=== PATIENT | male | born 1960 | race Hispanic/Latino ===

== ENCOUNTER → 2018-06-20 | Outpatient (CLI) | payer OTHER ==
[~2018-06-20] MED LIST: ALPR-410 PO; CLOP75TA14 PO; CYCL10 PO; HYDR-4068 PO; LOSA25TA41 PO; METO-408 PO; NITR0.4T SL; POLY17PO4 PO; SIMV10TA6 PO; TRAM50TA4 PO; mylanta PO
== END | disposition home or self-care (01) ==
LOC: RAH 13:39
PROVIDERS: ATTEND Family Medicine
DX: H53.9 Unspecified visual disturbance (principal); R51 Headache; Z86.73 Personal history of transient ischemic attack (TIA), and cerebral infarction without residual deficits
CPT/HCPCS: 70551

== ENCOUNTER → 2019-10-14 | Outpatient (CLI) | payer OTHER ==
[~2019-10-14] MED LIST changes: -SIMV10TA6 PO; +SIMV10TA97 PO
== END | disposition home or self-care (01) ==
LOC: RAH 14:00
PROVIDERS: ATTEND Family Medicine
DX: R91.1 Solitary pulmonary nodule (principal); R06.02 Shortness of breath
CPT/HCPCS: 71250

== ENCOUNTER → 2020-04-12 | Outpatient (CLI) | payer OTHER | END | disposition home or self-care (01) | LOC: RAH 13:59 | PROVIDERS: ATTEND Family Medicine | DX: R91.1 Solitary pulmonary nodule (principal) | CPT/HCPCS: 71250 ==

== ENCOUNTER → 2024-02-26 | Outpatient (CLI) | payer OTHER ==
[~2024-02-26] MED LIST changes: +CLOP-31 PO; -CLOP75TA14 PO; -CYCL10 PO; +CYCL10TA16 PO
--- NOTE | 2024-03-01 17:30 | HMCSR ---
APPROVED REPORT Laterality: Bilateral Indications Claudication: , PAD VELOCITY AND DOPPLER WAVEFORM ANALYSIS AIR BRAKE MAN (R) 139.4cm/sec, Biphasic, AIR BRAKE MAN (L) 115.8cm/sec, Biphasic, Prof Fem Art. (R) 92.5cm/sec, Biphasic, Prof Fem Art. (L) 66.0cm/sec, Biphasic, Fem Art Prox. (R) 93.9cm/sec, Biphasic, Fem Art Prox. (L) 96.1cm/sec, Biphasic, Fem Art Mid. (R) 79.0cm/sec, Biphasic, Fem Art Mid. (L) 60.7cm/sec, Biphasic, Fem Art Dist (R) 107.7cm/sec, Biphasic, Fem Art Dist. (L) 57.3cm/sec, Biphasic, Pop Art(AK) (R) 63.6cm/sec, Biphasic, Pop Art (AK) (L) 50.4cm/sec, Biphasic, Pop Art (Fossa)(R) 73.4cm/sec, Biphasic, Pop Art (Fossa) (L) 53.1cm/sec, Biphasic, Pop Art(BK) (R) 83.2cm/sec, Biphasic, Pop Art (BK) (L) 65.6cm/sec, Biphasic, HOSPICE VOLUNTEER Prox. (R) 78.7cm/sec, Biphasic, HOSPICE VOLUNTEER Prox. (L) 87.9cm/sec, Biphasic, HOSPICE VOLUNTEER Mid. (R) 94.9cm/sec, Biphasic, HOSPICE VOLUNTEER Mid. (L) 86.1cm/sec, Biphasic, HOSPICE VOLUNTEER Dist. (R) 76.4cm/sec, Biphasic, HOSPICE VOLUNTEER Dist. (L) 78.1cm/sec, Biphasic, Per Art Prox. (R) 52.2cm/sec, Biphasic, Per Art Prox. (L) 37.7cm/sec, Biphasic, Per Art Mid. (R) 64.4cm/sec, Biphasic, Per Art Mid. (L) 58.3cm/sec, Biphasic, Per Art Dist. (R) 44.9cm/sec, Biphasic, Per Art Dist. (L) 40.4cm/sec, Biphasic, ANAHI Prox. (R) 48.8cm/sec, Biphasic, ANAHI Prox. (L) 38.6cm/sec, Biphasic, ANAHI Mid. (R) 24.1cm/sec, Monophasic ANAHI Mid. (L) 26.0cm/sec, Monophasic, ANAHI Dist. (R) 17.9cm/sec, Monophasic, ANAHI Dist. (L) cm/sec, Occluded, Occluded Technologist Impression Monophsaic waveforms in the Right mid to distal ANAHI. Monophasic waveforms in the Left mid ANAHI with a distal occlusion. Conclusion Bilateral ANAHI PAD Otherwise no other findings Conclusion Bilateral ANAIH PAD Otherwise no other findings
--- NOTE | 2024-03-01 17:31 | HMCSR ---
APPROVED REPORT Bilateral Lower Extremity Venous Study for DVT., Venous Competence. Indications i87.1, i87.2 Vein Imaging CFV (R): Normal flow, augmentation and compression. No evidence of DVT. 10.3mm 467ms of reflux. SFJ (R): Normal flow, augmentation and compression. No evidence of DVT. FEM (R): Normal flow, augmentation and compression. No evidence of DVT. POP (R): Normal flow, augmentation and compression. No evidence of DVT. DFV (R): Normal flow, augmentation and compression. No evidence of DVT. PTV (R): Normal flow, augmentation and compression. No evidence of DVT. Peroneals (R): Normal flow, augmentation and compression. No evidence of DVT. CFV (L): Normal flow, augmentation and compression. No evidence of DVT. 12.1mm 1206ms of reflux. SFJ (L): Normal flow, augmentation and compression. No evidence of DVT. FEM (L): Normal flow, augmentation and compression. No evidence of DVT. POP (L): Normal flow, augmentation and compression. No evidence of DVT. DFV (L): Normal flow, augmentation and compression. No evidence of DVT. PTV (L): Normal flow, augmentation and compression. No evidence of DVT. Peroneals (L): Normal flow, augmentation and compression. No evidence of DVT. Technologist Impression Deep veins of the bilateral lower extremities appear paten and compressible without thrombus. Deep venous reflux noted in the LCFV. No superficial venous insufficiency. RGSV junction 5.5mm 0.0ms thigh 3.0mm 0.0ms knee 2.8mm 0.0ms calf 2.2mm 0.0ms RSSV prox 2.5mm 0.0ms mid 2.6mm 0.0ms LGSV junction 5.7mm 0.0ms thigh 3.1mm 0.0ms knee 1.7mm0.0ms calf 2.1mm0 .0ms LSSV prox 2.7mm 0.0ms mid 2.8mm 0.0ms Conclusion Deep venous reflux noted in the LCFV. No superficial venous insufficiency. Conclusion Deep venous reflux noted in the LCFV. No superficial venous insufficiency.
--- NOTE | 2024-03-04 17:04 | HMCSR ---
APPROVED REPORT EXAM: Two-dimensional and M-mode echocardiogram with Doppler and color Doppler. INDICATION ICD: R06.09 Other forms of dyspnea Chest Pain 2D Dimensions RVDd3.8 cmLVEF(%)51.2 (>50%)LVED Vol(simp.)104.0 mL IVSd0.9 (0.7-1.1cm)FS(%)26 %LVES Vol(simp.)52.0 mL LVDd5.1 (3.8-5.6cm)Ao Root(2D)3.2 (2.0-3.7cm)LVEF(%, simp.)50 % PWd0.9 (0.7-1.1cm)LVOT diam2.1 (1.8-2.4cm)LA ESV INDEX (BP)25.64 mL/m2 LVDs3.7 (2.5-4.0cm)IVC diam1.7 cm Aortic Valve AoV Vmax1.0 m/Jazzmine Peak GR3.7 mmHgLVOT Vmax0.8 m/s AoV VTI0.3 mAo Mean GR2.5 mmHgLVOT VTI0.21 m ZAEB (VMAX)2.9 cm2AVA (VTI) 2.9 cm2 Mitral Valve MV E Vmax88.1 cm/sDECEL Drev187 ms MV A Vmax74.6 cm/sP 1/2 T38 ms E/A ratio1.2MVA (PHT)5.8 cm2 TDI E/E' Hqoyqy96.5E/E' Nztgnnq62.8 Pulmonary Valve PV Vmax1.3 m/sPV VTI0.33 mPV Mean GR4 mmHg PV Peak GR6.6 mmHgPI End Jennifer. Mayur 0.8 cm/s Tricuspid Valve TR Vmax2.4 m/sRAP (EST) 3 fiApIKPC08.2 mmHg TR Peak GR23.2 mmHg Left Ventricle The left ventricle structure and function is normal. There is normal LV segmental wall motion. There is normal left ventricular wall thickness. LVEF is 50-55%. Left ventricular filling pattern is normal for age. Right Ventricle The right ventricle is normal size. The right ventricular systolic function is normal. Atria The left atrium size is normal. The right atrium size is normal. Aortic Valve Aortic valve is trileaflet. Aortic valve leaflets are sclerotic but open well. Trace aortic regurgita tion. There is no aortic valvular stenosis. Mitral Valve Mitral valve leaflets are mildly sclerotic but open well. Mitral regurgitation is trace. There is no mitral valve stenosis. Tricuspid Valve The tricuspid valve leaflets appear normal. There is trace tricuspid regurgitation. Pulmonic Valve The pulmonic valve leaflets are thin and pliable; valve motion is normal. There is trace pulmonic yuki vular regurgitation. Great Vessels The aortic root is normal in size. The IVC is normal in size and collapses >50% with inspiration. Pericardium No pericardial effusion. Conclusion LVEF is 50-55%. There is normal LV segmental wall motion. No pericardial effusion.
== END | disposition home or self-care (01) ==
LOC: SHCH 10:41
PROVIDERS: ATTEND Internal Medicine Cardiovascular Disease
DX: I70.202 Unspecified atherosclerosis of native arteries of extremities, left leg (principal); I87.2 Venous insufficiency (chronic) (peripheral); I87.1 Compression of vein; R07.9 Chest pain, unspecified; R06.09 Other forms of dyspnea; I21.09 ST elevation (STEMI) myocardial infarction involving other coronary artery of anterior wall
CPT/HCPCS: 93306; 93925; 93970

== ENCOUNTER → 2024-02-29 | Outpatient (CLI) | payer OTHER ==
[2024-02-29] MEDS: REGADENOSON 0.4 MG/5 ML PF SYG IVP ONE (11:10)
--- NOTE | 2024-03-04 13:49 | HMCSR ---
APPROVED REPORT Height: 6 ft 1in Weight: 177 lbs TEST INDICATIONS Dyspnea The imaging protocol used to acquire images was Rest Tc-99m/stress Tc-99m 1 day Consent: The procedure was explained and understood by the patient. Informerd consent was witnessed Mendoza DACOSTA RN First, low dose rest was performed then high dose stress. RESTING DATA: The resting ekg shows: NSR Rest SPECT myocardial perfusion imaging was performed in supine position 88 minutes following the int ravenous injection of 12.0 mCi of Tc-99 Sestamibi. Time of rest injection: 08:34: Date: 02/29/2024 Time of rest imagin:02: Date: 02/29/2024 PHARMACOLOGIC STRESS: Pharmacologic stress test was performed by injecting regadenoson 0.4 mg IV push followed by the intra venous injection of 30.5 mCi of Tc-99 Sestamibi. Time of stress injection: 10:47: Date: 02/29/2024 Time of stress imagin:35: Date: 02/29/2024 Heart Rate at time of stress injection: 59 bpm. Gated Stress SPECT was performed 108 minutes after stress injection. The images were gated to evaluate regional wall motion and calculate left ventricular ejection fracti on. STRESS DETAILS Reason for Termination: Infusion complete Stress Symptoms: Dyspnea Max HR Achieved: 86 bpm % of APMHR Achieved: 55 Max Blood Pressure: 131/77 mmHg Stress ECG: NSR Study quality was good. Lung uptake was Normal. Artifact: No artifact LEFT VENTRICLE Size: The left ventricular size is normal. Systolic Function:The left ventricular systolic function is normal. The left ventricular ejection fraction was calculated to be 65%.TID = . LV PERFUSION The rest and stress images show normal perfusion. IMPRESSION Normal pharmacologic nuclear stress test. Global LV Function: Normal Stress ECG Summary: Normal LV Perfusion Summary: Normal Conclusion Normal pharmacologic nuclear stress test. Stress ECG Summary: Normal LV Perfusion Summary: Normal Global LV Function: Normal
== END | disposition home or self-care (01) ==
LOC: SHCH 08:14
PROVIDERS: ATTEND Internal Medicine Cardiovascular Disease
DX: R07.9 Chest pain, unspecified (principal); R06.09 Other forms of dyspnea; I21.09 ST elevation (STEMI) myocardial infarction involving other coronary artery of anterior wall
CPT/HCPCS: 78452; 93017; J2785; A9500 ×2